=== PATIENT | male | born 1975 | race Caucasian/White ===

== ENCOUNTER 2020-05-22 09:25 | Emergency (ER) | payer BC ==
[2020-05-22] MEDS ORDERED: Lactated Ringers 1,000 ML IV ONE (09:47)
[2020-05-22] MEDS ORDERED: Sodium Chloride 0.9% 10 ML Syringe FLUSH PRN (09:47)
[2020-05-22] MEDS ORDERED: Acetaminophen 500 MG Tab PO ONE (09:56)
[2020-05-22] MEDS ORDERED: cefTRIAXone 1 GM Vial IVPUSH ONE (10:10)
[2020-05-22 10:39] LABS: ANION GAP 13.8 mmol/L (10-20); CHLORIDE,CL 101 mmol/L (98-107); SODIUM,NA 139 mmol/L (136-145)
--- NOTE | 2020-05-22 10:46 | CR ---
[id number] RAD/RAD Chest PA And Lateral EXAM: RAD Chest PA And Lateral INDICATION: FEVER, SHORTNESS OF BREATH. COMPARISON: May 2019 DISCUSSION: Cardiomediastinal silhouette is normal in size and contour. Lungs are clear. No pleural effusion or pneumothorax. IMPRESSION: Negative examination of the chest. Tad Castillo MD 05/22/20 1046 Thank you for allowing us to participate in the care of your patient.
[2020-05-22] MEDS ORDERED: predniSONE 20 MG Tab PO ONE (11:11)
--- NOTE | 2020-05-22 11:20 | EDM.PDOC ---
ED HPI GENERAL MEDICAL PROBLEM - General Chief Complaint: Fever Stated Complaint: COVID SYMPTOMS Time Seen by Provider: 05/22/20 09:30 Source of Information: Reports: Patient History Limitations: Reports: No Limitations - History of Present Illness INITIAL COMMENTS - FREE TEXT/NARRATIVE: Patient comes emergency department today from home with a 2-week complaint of shortness of breath cough and congestion. This patient has slowly developed worsening shortness of breath cough and congestion over the past 2 weeks. His cough is jested and productive of thick green mucus. Today he felt feverish and chills at home. He has not taken any antipyretics prior to arrival. He has not been exposed anyone sick. He has no loss of taste or smell. No diarrhea. No abdominal pain. No nausea or vomiting. No weakness dizziness lightheadedness. He is not a smoker. He has concerns for the development of pneumonia as he gets it every year. No hematuria dysuria or urinary frequency. He has been eating and drinking appropriately. Headache Pain Score (Numeric/FACES): 3 - Related Data Allergies Allergy/AdvReac Type Severity Reaction Status Date / Time cephalexin monohydrate Allergy Hives Verified 05/22/20 09:47 [From Keflex] Home Meds: Home Meds Albuterol [Ventolin HFA] 1 puff INH Q4H PRN #1 puff 05/22/20 [Rx] Doxycycline [Vibra-Tabs] 100 mg PO Q12HR #14 tab 05/22/20 [Rx] predniSONE 40 mg PO DAILY #8 tab 05/22/20 [Rx] Past Medical History - Past Health History Medical/Surgical History: Denies Medical/Surgical History Dermatologic History: Reports: Cellulitis Other Dermatologic History: Has hx of cellulitis to legs - Past Surgical History Cardiovascular Surgical History: Reports: Other (See Below) Other Cardiovascular Surgeries/Procedures: ablations to legs for circulation Social & Family History - Tobacco Use Tobacco Use Status *Q: Never Tobacco User - Recreational Drug Use Recreational Drug Use: No ED ROS GENERAL - Review of Systems Review Of Systems: Comprehensive ROS is negative, except as noted in HPI. ED EXAM, GENERAL - Physical Exam Exam: See Below Exam Limited By: No Limitations General Appearance: Alert, WD/WN, No Apparent Distress Eye Exam: Bilateral Eye: EOMI, PERRL Ears: Normal External Exam Nose: Normal Inspection Throat/Mouth: Normal Inspection, Normal Oropharynx Head: Atraumatic, Normocephalic Neck: Normal Inspection, Supple, Non-Tender, Full Range of Motion. No: Lymphadenopathy (L), Lymphadenopathy (R) Respiratory/Chest: No Respiratory Distress, Lungs Clear (clear in the periphery with some central bronchus transmitted rhonchi. ), Normal Breath Sounds, No Accessory Muscle Use, Chest Non-Tender Cardiovascular: Normal Peripheral Pulses, Regular Rate, Rhythm Peripheral Pulses: 2+: Radial (L), Radial (R), Posterior Tibial (L), Posterior Tibial (R), Dorsalis Pedis (L), Dorsalis Pedis (R) GI/Abdominal: Normal Bowel Sounds, Soft, Non-Tender (Male) Exam: Deferred Rectal (Males) Exam: Deferred Back Exam: Normal Inspection, Full Range of Motion Extremities: Normal Inspection, Normal Range of Motion, No Pedal Edema, Normal Capillary Refill Neurological: Alert, Oriented, Normal Cognition, No Motor/Sensory Deficits Skin Exam: Dry, Intact, No Rash, Increased Warmth Course - Vital Signs Last Recorded V/S: Last Vital Signs Temp 101 F H 05/22/20 11:25 Pulse 92 05/22/20 11:25 Resp 20 05/22/20 11:25 BP 105/50 L 05/22/20 11:25 Pulse Ox 95 05/22/20 11:25 - Orders/Labs/Meds Orders: Active Orders 24 hr Category Date Time Status CULTURE BLOOD [BC] Stat Lab 05/22/20 09:40 Received CULTURE BLOOD [BC] Stat Lab 05/22/20 10:01 Received Lactated Ringers [Ringers, Lactated] 1,000 ml Med 05/22/20 13:15 Active IV ASDIRECTED Blood Culture x2 Reflex Set [OM.PC] Stat Oth 05/22/20 09:46 Ordered Peripheral IV Insertion Adult [OM.PC] Stat Oth 05/22/20 09:46 Ordered Medication Orders Lactated Ringer's (Ringers, Lactated) 1,000 mls @ 200 mls/hr IV ASDIRECTED MARION Labs: Laboratory Tests 05/22/20 05/22/20 05/22/20 Range/Units 09:30 09:40 09:40 WBC 14.3 H (4.0-10.0) x10^3/uL RBC 4.91 (4.5-6.0) x10^6/uL Hgb 15.0 (14.0-18.0) g/dL Hct 44.8 (40.0-52.0) % MCV 91.2 (78.0-93.0) fL MCH 30.5 (26.0-32.0) pg MCHC 33.5 (32.0-36.0) g/dL RDW Coeff of Simran 13.1 (10.0-15.0) % Plt Count 238 (130-400) x10^3/uL Neut % (Auto) 86.5 H (50.0-80.0) % Lymph % (Auto) 5.9 L (25.0-50.0) % [place] % (Auto) 6.9 (2.0-11.0) % Eos % (Auto) 0.6 (0.0-4.0) % Baso % (Auto) 0.1 L (0.2-1.2) % Sodium 139 (136-145) mmol/L Potassium 3.8 (3.5-5.1) mmol/L Chloride 101 (98-107) mmol/L Carbon Dioxide 28 (21-32) mmol/L Anion Gap 13.8 (10-20) mmol/L BUN 11 (7-18) mg/dL Creatinine 1.0 (0.70-1.30) mg/dL Est Cr Clr Drug Dosing 97.33 mL/min Estimated GFR (MDRD) > 60 Glucose 96 (74-106) mg/dL Lactic Acid (0.4-2.0) mmol/L Calcium 8.8 (8.5-10.1) mg/dL Corrected Calcium 8.88 (8.5-10.1) mg/dL Total Bilirubin 0.9 (0.2-1.0) mg/dL AST 135 H (15-37) U/L ALT 208 H (16-63) U/L Alkaline Phosphatase 128 H (46-116) U/L C-Reactive Protein 12.0 H (<=0.9) mg/dL Total Protein 8.1 (6.4-8.2) g/dL Albumin 3.9 (3.4-5.0) g/dL Globulin 4.2 Albumin/Globulin Ratio 0.93 Urine Color (YELLOW) Urine Appearance (CLEAR) Urine pH (5.0-8.0) Ur Specific [place] Urine Protein (NEGATIVE) mg/dL Urine Glucose (UA) (NEGATIVE) mg/dL Urine Ketones (NEGATIVE) mg/dL Urine Occult Blood (NEGATIVE) Urine Nitrite (NEGATIVE) Urine Bilirubin (NEGATIVE) Urine Urobilinogen (0.2) EU/dL Ur Leukocyte Esterase (NEGATIVE) SARS CoV-2 RNA Rapid BRIANDA Negative (NEGATIVE) 05/22/20 05/22/20 Range/Units 09:40 10:10 WBC (4.0-10.0) x10^3/uL RBC (4.5-6.0) x10^6/uL Hgb (14.0-18.0) g/dL Hct (40.0-52.0) % MCV (78.0-93.0) fL MCH (26.0-32.0) pg MCHC (32.0-36.0) g/dL RDW Coeff of Simran (10.0-15.0) % Plt Count (130-400) x10^3/uL Neut % (Auto) (50.0-80.0) % Lymph % (Auto) (25.0-50.0) % [place] % (Auto) (2.0-11.0) % Eos % (Auto) (0.0-4.0) % Baso % (Auto) (0.2-1.2) % Sodium (136-145) mmol/L Potassium (3.5-5.1) mmol/L Chloride (98-107) mmol/L Carbon Dioxide (21-32) mmol/L Anion Gap (10-20) mmol/L BUN (7-18) mg/dL Creatinine (0.70-1.30) mg/dL Est Cr Clr Drug Dosing mL/min Estimated GFR (MDRD) Glucose (74-106) mg/dL Lactic Acid 1.3 (0.4-2.0) mmol/L Calcium (8.5-10.1) mg/dL Corrected Calcium (8.5-10.1) mg/dL Total Bilirubin (0.2-1.0) mg/dL AST (15-37) U/L ALT (16-63) U/L Alkaline Phosphatase (46-116) U/L C-Reactive Protein (<=0.9) mg/dL Total Protein (6.4-8.2) g/dL Albumin (3.4-5.0) g/dL Globulin Albumin/Globulin Ratio Urine Color Dark yellow H (YELLOW) Urine Appearance Slightly cloudy H (CLEAR) Urine pH 7.0 (5.0-8.0) Ur Specific [place] 1.025 Urine Protein Negative (NEGATIVE) mg/dL Urine Glucose (UA) 250 H (NEGATIVE) mg/dL Urine Ketones Negative (NEGATIVE) mg/dL Urine Occult Blood Negative (NEGATIVE) Urine Nitrite Negative (NEGATIVE) Urine Bilirubin Negative (NEGATIVE) Urine Urobilinogen 1.0 (0.2) EU/dL Ur Leukocyte Esterase Negative (NEGATIVE) SARS CoV-2 RNA Rapid BRIANDA (NEGATIVE) Meds: Medications Generic Name Dose Route Start Last Admin Trade Name Freq PRN Reason Stop Dose Admin Lactated Ringer's 1,000 mls @ 200 mls/hr 05/22/20 13:15 Ringers, Lactated IV ASDIRECTED MARION Discontinued Medications Generic Name Dose Route Start Last Admin Trade Name Freq PRN Reason Stop Dose Admin Acetaminophen 1,000 mg 05/22/20 09:56 05/22/20 10:05 Tylenol Extra Strength PO 05/22/20 09:57 1,000 mg ONETIME ONE Administration Ceftriaxone Sodium 1 gm 05/22/20 10:10 05/22/20 10:15 Rocephin IVPUSH 05/22/20 10:11 1 gm STAT ONE Administration Lactated Ringer's 1,000 mls @ 999 mls/hr 05/22/20 09:47 05/22/20 09:57 Ringers, Lactated IV 05/22/20 10:47 999 mls/hr ONETIME ONE Administration Prednisone 40 mg 05/22/20 11:11 Prednisone PO 05/22/20 11:12 ONETIME ONE Sodium Chloride 10 ml 05/22/20 09:47 Saline Flush FLUSH ASDIRECTED PRN Keep Vein Open - Re-Assessments/Exams Free Text/Narrative Re-Assessment/Exam: 05/22/20 14:16 Patient has a quite elevated fever. Blood cultures x2 pending. Tylenol 1 g p.o. 1 g of Rocephin IV push. LR 1 L wide open. Chest x-ray per radiology shows negative examination of the chest. Analysis is negative for infectious process. He does have minimally elevated AST ALT and alk phos. Reviewing his chart and speaking with the patient this is kind of chronic for him. He has no abdominal pain. Reexamination of the abdomen shows a soft nontender especially in the right upper quadrant. He has a negative Larsen sign. He has a normal T bili. White count is minimally elevated. COVID Negative and Influenza negative I reviewed his negative chest x-ray and his laboratory evaluation with the patient. We discussed his liver enzymes at length although this is kind of a chronic sequelae for him. We will treat him for bronchitis at this time with doxycycline prednisone and albuterol. Anything new or worse he is to recheck. He is understanding of this and his questions are answered. Departure - Departure Time of Disposition: 11:08 Disposition: Home, Self-Care 01 Clinical Impression: Bronchitis, Elevated liver enzymes - Discharge Information Prescriptions: predniSONE 40 mg PO DAILY #8 tab Albuterol [Ventolin HFA] 1 puff INH Q4H PRN #1 puff PRN Reason: Cough Doxycycline [Vibra-Tabs] 100 mg PO Q12HR #14 tab Instructions: How to Use a Metered Dose Inhaler, Upper Respiratory Infection, Adult, [id number], Fever, Adult, [id number] Referrals: Loreta Galdamez PA-C [Primary Care Provider] - Forms: ED Department Discharge Additional Instructions: Rest the next few days. Increase your fluids as much as possible over the next few days. Should be urinating every 2 hours if you are drinking enough fluids. Tylenol and or Ibuprofen as needed for fever pain discomfort. Prednisone 40mg a day for the next 5 days. First dose given in the ED. RX sent to [facility]. Albuterol MDI inhaler, 2 puffs with a spacer every 4 hours as needed for cough or congestion. RX sent to [facility]. Doxycycline 1 tablet twice daily for the next 7 days. RX sent to [facility]. Return to the ED if new or worsening symptoms. Follow up with PCP in the next 4-6 days if not improving sooner if worse. Sepsis Event Note (ED) - Evaluation Sepsis Screening Result: No Definite Risk - Focused Exam Vital Signs: Vital Signs Temp Pulse Resp BP Pulse Ox 05/22/20 11:25 101 F H 92 20 105/50 L 95 05/22/20 09:20 103.5 F H 106 H 24 H 135/82 96 - My Orders Last 24 Hours: My Active Orders 05/22/20 09:40 CULTURE BLOOD [BC] Stat 05/22/20 09:46 Blood Culture x2 Reflex Set [OM.PC] Stat Peripheral IV Insertion Adult [OM.PC] Stat 05/22/20 10:01 CULTURE BLOOD [BC] Stat 05/22/20 13:15 Lactated Ringers [Ringers, Lactated] 1,000 ml IV ASDIRECTED - Assessment/Plan Last 24 Hours: My Active Orders 05/22/20 09:40 CULTURE BLOOD [BC] Stat 05/22/20 09:46 Blood Culture x2 Reflex Set [OM.PC] Stat Peripheral IV Insertion Adult [OM.PC] Stat 05/22/20 10:01 CULTURE BLOOD [BC] Stat 05/22/20 13:15 Lactated Ringers [Ringers, Lactated] 1,000 ml IV ASDIRECTED
[2020-05-22 12:48] VITALS: BP 105/50; PULSE 92
[2020-05-22] MEDS ORDERED: Lactated Ringers 1,000 ML IV SCH (13:15)
== END 2020-05-22 11:30 | disposition home or self-care (01) ==
LOC: VM.ED 09:25
DX: J40 Bronchitis, not specified as acute or chronic (principal); R74.8 Abnormal levels of other serum enzymes; Z88.1 Allergy status to other antibiotic agents; Z20.828 Contact with and (suspected) exposure to other viral communicable diseases
CPT/HCPCS: 36415; 71046; 80053; 81003; 83605; 85025; 86140; 87040; 87804; 87804-59; 96374; 99284; 99285-25; A9270-GY; J0696; J7120; U0002

== ENCOUNTER 2025-05-29 00:08 | Emergency (ER) | payer BC ==
[2025-05-29] MEDS ORDERED: Naloxone 0.4 MG/ML SDV IVPUSH PRN (00:38)
[2025-05-29] MEDS: Ondansetron 4 MG/2 ML SDV IVPUSH ONE (00:42)
[2025-05-29 00:46] LABS: BASOPHILS ABSOLUTE AUTO 0.0 x10^3/uL (0.0-0.2); BASOPHILS PERCENT AUTO 0.2 % (0.2-1.2); EOSINOPHILS ABSOLUTE AUTO 0.0 x10^3/uL (0.0-0.5); EOSINOPHILS PERCENT AUTO 0.4 % (0.0-4.0); IMMATURE GRAN ABSOLUTE AUTO 0.11 x10^3/uL (0.00-0.07); IMMATURE GRAN PERCENT AUTO 1.10 % (0.00-0.43); LYMPHOCYTES ABSOLUTE AUTO 0.9 x10^3/uL (1.0-4.8); LYMPHOCYTES PERCENT AUTO 8.9 % (25.0-50.0); MONOCYTES ABSOLUTE AUTO 0.5 x10^3/uL (0.0-0.8); MONOCYTES PERCENT AUTO 4.3 % (2.0-11.0); NEUTROPHILS ABSOLUTE AUTO 8.8 x10^3/uL (1.8-7.7); NEUTROPHILS PERCENT AUTO 85.1 % (50.0-80.0); PLATELET COUNT,PLT 244 x10^3/uL (130-400); RED BLOOD CELL COUNT 4.73 x10^6/uL (4.5-6.0); WHITE BLOOD CELL COUNT,WBC 10.4 x10^3/uL (4.0-10.0)
[2025-05-29 00:48] LABS: GLUCOSE,URINE 250 mg/dL (NEGATIVE); OCCULT BLOOD,URINE MODERATE (NEGATIVE)
[2025-05-29 00:50] LABS: APPEARANCE,URINE SLIGHTLY CLOUDY (CLEAR)
[2025-05-29 00:58] LABS: YEAST BUDDING,URINE OCCASIONAL /HPF (NONE - FEW)
[2025-05-29 01:02] LABS: A/G RATIO 1.03; ALANINE AMINOTRANSFERASE,ALT 84.0 U/L (16-63); ASPARTATE AMNIOTRANSFERASE,AST 54.0 U/L (15-37); BILIRUBIN TOTAL 0.6 mg/dL (0.2-1.0); BLOOD UREA NITROGEN,BUN 25.0 mg/dL (7-18); CARBON DIOXIDE,CO2 27.0 mmol/L (21-32); CHLORIDE,CL 103.0 mmol/L (98-107); CREATININE 1.5 mg/dL (0.70-1.30); EST CRCL DRUG DOSING (CG) 59.57 mL/min; GLUCOSE RANDOM 195.0 mg/dL (70-99); POTASSIUM,K 4.4 mmol/L (3.5-5.1); PROTEIN TOTAL,TP 7.9 g/dL (6.4-8.2); SODIUM,NA 140.0 mmol/L (136-145)
[2025-05-29 01:03] LABS: ESTIMATED GFR 57.0 mL/min (>=60)
[2025-05-29] MEDS: Take Home: Tamsulosin HCl 0.4 MG, 6 Cap Pack PO ONE (01:53)
[2025-05-29 02:43] VITALS: BP 170/83; PULSE 72
== END 2025-05-29 02:34 | disposition home or self-care (01) ==
LOC: VM.ED 00:08
DX: N13.2 Hydronephrosis with renal and ureteral calculous obstruction (principal); Z79.899 Other long term (current) drug therapy; Z88.1 Allergy status to other antibiotic agents
CPT/HCPCS: 74176; 80053; 81001; 85025; 96361; 96374; 96375; 99284-25; A9270-GY; J1171; J2405; J7030